=== PATIENT | male | born 1980 | race Caucasian/White ===

== ENCOUNTER 2020-08-03 20:44 | Emergency (ER) | payer OTHER ==
[2020-08-03] MEDS ORDERED: GLUCOPHAGE500 MG/TAB PO (21:03)
[2020-08-03] MEDS ORDERED: ALOGLIPTIN25 MG PO (21:03)
[2020-08-03] MEDS ORDERED: WELLBUTRIN XL300 M1 PO (21:04)
[2020-08-03] MEDS ORDERED: LOSARTAN POTASS50 M1 PO (21:05)
[2020-08-03] MEDS ORDERED: EFFEXOR XR150 M1 PO (21:05)
[2020-08-03] MEDS ORDERED: CYCLOBENZAPRINE10 M1 PO (21:05)
[2020-08-03] MEDS ORDERED: LAMICTAL200 M1 PO (21:05)
[2020-08-03] MEDS ORDERED: CLONIDINE HYDR0.3 MG PO (21:06)
[2020-08-03] MEDS ORDERED: ATARAX 10MG10 MG/TAB PO (21:06)
[2020-08-03] MEDS ORDERED: PROPRANOLOL HCL40 M2 PO (21:07)
[2020-08-03] MEDS ORDERED: LIPITOR20 M2 PO (21:08)
[2020-08-03] MEDS ORDERED: GLUCOPHAGE1000 MG PO (21:08)
[2020-08-03 21:45] VITALS: BP 124/74
== END 2020-08-03 21:45 | disposition home or self-care (01) ==
LOC: ED 20:44
DX: S61.217A Laceration without foreign body of left little finger without damage to nail, initial encounter (principal); E11.9 Type 2 diabetes mellitus without complications; I10 Essential (primary) hypertension; F17.210 Nicotine dependence, cigarettes, uncomplicated; Z79.84 Long term (current) use of oral hypoglycemic drugs; W26.8XXA Contact with other sharp object(s), not elsewhere classified, initial encounter; Y99.0 Civilian activity done for income or pay

== ENCOUNTER 2020-09-30 20:01 | Emergency (ER) | payer BC ==
[~2020-09-30 20:01] MED LIST: ALOGLIPTIN25 MG PO; ATARAX 10MG10 MG/TAB PO; CLONIDINE HYDR0.3 MG PO; CYCLOBENZAPRINE10 M1 PO; EFFEXOR XR150 M1 PO; GLUCOPHAGE1000 MG PO; GLUCOPHAGE500 MG/TAB PO; LAMICTAL200 M1 PO; LIPITOR20 M2 PO; LOSARTAN POTASS50 M1 PO; PROPRANOLOL HCL40 M2 PO; WELLBUTRIN XL300 M1 PO
[2020-09-30 21:33] VITALS: BP 138/91
== END 2020-09-30 21:33 | disposition home or self-care (01) ==
LOC: ED 20:01
DX: S61.012A Laceration without foreign body of left thumb without damage to nail, initial encounter (principal); E11.9 Type 2 diabetes mellitus without complications; F32.9 Major depressive disorder, single episode, unspecified; F41.9 Anxiety disorder, unspecified; G43.909 Migraine, unspecified, not intractable, without status migrainosus; F17.210 Nicotine dependence, cigarettes, uncomplicated; Z79.84 Long term (current) use of oral hypoglycemic drugs; Z79.899 Other long term (current) drug therapy; W29.8XXA Contact with other powered hand tools and household machinery, initial encounter; Y93.89 Activity, other specified; Y92.009 Unspecified place in unspecified non-institutional (private) residence as the place of occurrence of the external cause